=== PATIENT | female | born 1995 | race Caucasian/White ===

== ENCOUNTER 2019-03-07 19:50 | Emergency (ER) | payer OTHER ==
[2019-03-07 20:06] VITALS: BP 111/72
--- NOTE | 2019-03-07 20:52 | UC ---
Abdominal Pain Female HPI - HPI Summary HPI Summary: Patient presents to urgent care for evaluation of possible urinary tract infection. Patient reports dysuria progressive the last 24 hours. No nausea vomiting. No back pain. No vaginal discharge, itching, odor. Patient has had similar symptoms in the past. Patient states she had a little bit of pink on the toilet tissue once. Otherwise no gross hematuria. Patient's medication review this visit. Last UTI was approximately one month ago. Patient states she stopped . - History of Current Complaint Chief Complaint: UCGU Stated Complaint: URINARY Time Seen by Provider: 03/07/19 20:50 Hx Obtained From: Patient Hx Last Menstrual Period: Feb 23 Pain Intensity: 0 Allergies/Adverse Reactions: Allergies Allergy/AdvReac Type Severity Reaction Status Date / Time No Known Allergies Allergy Verified 03/07/19 20:06 PMH/Surg Hx/FS Hx/Imm Hx Previously Healthy: Yes - Surgical History Surgical History: None - Family History Known Family History: Positive: Non-Contributory - Social History Occupation: Student Lives: Dormitory/Roommates Alcohol Use: Weekly Substance Use Type: None Smoking Status (MU): Never Smoked Tobacco Review of Systems All Other Systems Reviewed And Are Negative: Yes Constitutional: Positive: Negative Skin: Positive: Negative Genitourinary: Positive: Dysuria, Frequency, Urgency. Negative: Vaginal/Penile Burning, Vaginal/Penile Itching, Vaginal/Penile Discharge Physical Exam - Summary Physical Exam Summary: Vital Signs Reviewed: Yes A+Ox3, no distress Eyes: Conjunctiva Clear, JASPAL. EOM intact and full ENT: Hearing grossly normal TM x 2 clear, mmoist, uvula midline, no exudate, no erythema Neck: Positive: Supple Respiratory: Positive: No respiratory distress, No accessory muscle use + CTA throughout no w/r Cardiovascular: RRR nl s1, s2 no m/r CBT <2 sec abd soft + BS nd, mild suprapubic discomfort, no guarding, no distension, no cva Musculoskeletal Exam: VALLE x 4 without difficulty Strength Intact, ROM Intact Neurological: Positive: Alert, + sensation throughout Psychological: Positive: Normal Response To examiner Skin: Positive: no rash, no ecchymosis Triage Information Reviewed: Yes Vital Signs: Initial Vital Signs Temp 97.4 F 03/07/19 20:03 Pulse 78 03/07/19 20:03 Resp 16 03/07/19 20:03 BP 111/72 10/01/19 20:03 Pulse Ox 100 03/07/19 20:03 Abd Pain Female Course/Dx - Course Course Of Treatment: Patient presents to urgent care for evaluation of urinary symptoms that started today. Patient denies fevers or chills. No back pain. No vaginal discharge, itching, odor. On exam vital signs are stable. Patient with mild suprapubic discomfort but no CVA or other concerns. Patient's urine does show 3+ leuk esterase. We'll start patient on Macrobid and Pyridium. We'll culture. Return precautions discussed. Hydrate. Motrin time. Patient comfortable with plan. - Differential Dx/Diagnosis Provider Diagnosis: Dysuria Discharge ED - Sign-Out/Discharge Documenting (check all that apply): Patient Departure All imaging exams completed and their final reports reviewed: No Studies - Discharge Plan Condition: Stable Disposition: HOME Prescriptions: Nitrofurantoin Monohyd/M-Cryst [Macrobid 100 mg Capsule] 100 mg PO BID #13 cap Phenazopyridine TAB* [Pyridium 100 mg TAB*] 100 mg PO TID PRN #9 tab PRN Reason: burning with urination Patient Education Materials: Urinary Tract Infection in Women (ED) Referrals: No Primary Care Phys,NOPCP [Primary Care Provider] - BOBBY JAY [[employer], [employer], OTHER] - Additional Instructions: - stay well hydrated - drink plenty of non-alcoholic, non caffinated beverages - your urine will be further tested - if you require any changes to your treatment, we will contact you - this usually take 2 days - Contact your primary doctor to arrange a follow-up appointment next week. Contact your doctor or return with questions or concerns - Take your antibiotics exactly as prescribed until gone - Take pyridium as prescribed for discomfort. This will make your urine blaze orange - this is normal - Okay to alternate ibuprofen (Advil, Motrin) and Tylenol every 3 hours for pain. Take with food - Call your doctor or return with questions or concerns - Billing Disposition and Condition Condition: STABLE Disposition: Home
[2019-03-07] MEDS ORDERED: Phenazopyridine TAB* 100 MG PO ONE (20:59)
[2019-03-07] MEDS ORDERED: Nitrofurantoin Macrocrystals* 50 MG CAP PO ONE (21:00)
--- NOTE | 2019-03-10 07:20 | UC ---
- Progress Note Progress Note: Treated with macrodantin for suspected UTI. Please call to advise. If symptoms are persisting, should be re-evatluated. Otherwise, should stop use of antibiotics. Course/Dx - Diagnoses Provider Diagnoses: Dysuria Discharge ED - Sign-Out/Discharge Documenting (check all that apply): Patient Departure All imaging exams completed and their final reports reviewed: No Studies - Discharge Plan Condition: Stable Disposition: HOME Prescriptions: Nitrofurantoin Monohyd/M-Cryst [Macrobid 100 mg Capsule] 100 mg PO BID #13 cap Phenazopyridine TAB* [Pyridium 100 mg TAB*] 100 mg PO TID PRN #9 tab PRN Reason: burning with urination Patient Education Materials: Urinary Tract Infection in Women (ED) Referrals: No Primary Care Phys,NOPCP [Primary Care Provider] - BOBBY JAY [[employer], [employer], OTHER] - Additional Instructions: - stay well hydrated - drink plenty of non-alcoholic, non caffinated beverages - your urine will be further tested - if you require any changes to your treatment, we will contact you - this usually take 2 days - Contact your primary doctor to arrange a follow-up appointment next week. Contact your doctor or return with questions or concerns - Take your antibiotics exactly as prescribed until gone - Take pyridium as prescribed for discomfort. This will make your urine blaze orange - this is normal - Okay to alternate ibuprofen (Advil, Motrin) and Tylenol every 3 hours for pain. Take with food - Call your doctor or return with questions or concerns - Billing Disposition and Condition Condition: STABLE Disposition: Home
== END 2019-03-07 21:10 | disposition home or self-care (01) ==
LOC: UCCORT 19:50
DX: R30.0 Dysuria (principal); R35.0 Frequency of micturition; R39.15 Urgency of urination
CPT/HCPCS: 81003; 84702; 87086; 99202; A9270-GY; G0463